=== PATIENT | male | born 1965 | race Caucasian/White ===

== ENCOUNTER 2020-08-12 10:28 | Outpatient (CLI) | payer OTHER, SELFPAY ==
--- NOTE | ~2020-08-12 | US_ITS ---
EXAMINATION: US abdomen complete EXAM DATE: 08/12/2020 11:56 INDICATION: R74.8 - Abnormal levels of other serum enzymes elevated liver function tests. TECHNIQUE: Multiple grayscale and Doppler images of the complete abdomen were obtained (by a technolo gist who performed the scan) and subsequently reviewed. There is no prior study for comparison. FINDINGS: The abdominal aorta is normal in caliber. Visualized portion IVC is patent. The pancreatic head a nd body are normal in appearance. The pancreatic tail is not visualized. There is echogenic liver parenchyma, hepatic steatosis. There are no focal liver lesions identified. There is no evidence of intrahepatic biliary duct dilation. Portal venous flow was seen in the he patopedal, normal direction and has normal Doppler waveform. Common bile duct measures 3-4 mm, which is normal. The gallbladder wall is normal in thickness, with expected amount of distention. No sonographic evidence of pericholecystic fluid. There is no cholel ithiases. Technologist noted tenderness over the otherwise sonographically unremarkable gallbladder. Right kidney: There is normal contour and echogenicity. It measures 13.6 x 5.4 x 5.6 centimeters. T here is a 1 cm cyst. There is no hydronephrosis. Left kidney: There is normal contour and echogenicity. It measures 12.1 x 7.1 x 5.7 centimeters. T here are no focal renal lesions identified. There is no hydronephrosis. The spleen measures 12.5 centimeters and is morphologically normal. IMPRESSION: Hepatic steatosis. Reviewed, dictated and finalized at location A. STER COOK IMPRESSION: Hepatic steatosis.
[2020-08-12 11:14] LABS: Alanine Aminotransferase 62 U/L (4-50); Alkaline Phosphatase 94 U/L (38-126); Aspartate Amino Transferase 74 U/L (17-59); Bilirubin,Total 0.7 mg/dL (0.2-1.3)
[2020-08-12 11:54] LABS: Hepatitis B Surface Antigen Negative (Negative)
[2020-08-12 12:00] LABS: HAV RESULT Negative (Negative); Hepatitis B Core IgM Result Negative (Negative)
[2020-08-12 12:11] LABS: Hepatitis C Virus Antibody Negative (Negative)
[2020-08-16 00:08] LABS: GGT 101 U/L (3-95)
== END 2020-08-12 10:29 | disposition home or self-care (01) ==
LOC: ANHIMG 10:30
PROVIDERS: PCP Family Medicine; Visit Provider Nurse Practitioner Family
DX: R74.8 Abnormal levels of other serum enzymes (principal); K76.0 Fatty (change of) liver, not elsewhere classified
CPT/HCPCS: 36415; 76700; 80074; 80076; 82977

== ENCOUNTER 2024-06-12 14:26 | Outpatient (CLI) | payer OTHER, SELFPAY ==
--- NOTE | ~2024-06-12 | XR_ITS ---
CHEST RADIOGRAPH, PA AND LATERAL CLINICAL HISTORY: HX COPD, SMOKER, SOB, WHEEZING, . COMPARISON: None available TECHNIQUE: PA and lateral views of the chest. FINDINGS The cardiomediastinal silhouette is unremarkable. Calcified granuloma within the right lower lobe. Biapical scarring. Additional calcified granulomas within the right hilum. The remainder of the lungs are radiographically clear. Fixation hardware with cervical spine. IMPRESSION: Findings suggesting prior granulomatous disease, without focal infiltrate or effusion. Reviewed, dictated and finalized at location A. TE SENSING TECHNICIAN IMPRESSION: Findings suggesting prior granulomatous disease, without focal infiltrate or ef fusion.
--- NOTE | ~2024-06-12 | CT_ITS ---
CT Scan of the Chest without Contrast: Clinical Indication: Lung cancer screening, nicotine dependence Technique: Contiguous sections were acquired throughout the chest without intravenous contrast. Dose reduction technique was used on this scan by utilizing automated exposure control and iterative recon struction technique. The dose-length product (DLP) was 139.67 mGy-cm. Findings: There is no evidence of any significant mediastinal, hilar or axillary lymphadenopathy. The mediastin al soft tissues appear normal. There is no evidence of pleural or pericardial effusion. 7 mm nodule present superior segment right lower lobe (axial image 51). Calcified granulomas present in the right lower lobe (axial image 69 for example). There is additional 3 mm right lower lobe pulmo nary nodule (axial image 70). Additional calcified right basilar granuloma present. There is mild upp er lobe emphysema bilaterally. Images through the upper abdomen reveal no abnormalities. Impression: Lung RADS 3: Probably benign. 6 month follow-up screening CT advised. Reviewed, dictated and finalized at [facility]. RANCE VERIFICATION REP Impression: Lung RADS 3: Probably benign. 6 month follow-up screening CT advised.
== END 2024-06-12 14:27 | disposition home or self-care (01) ==
PROVIDERS: PCP Family Medicine; Visit Provider Nurse Practitioner Family
DX: Z12.2 Encounter for screening for malignant neoplasm of respiratory organs (principal); Z87.891 Personal history of nicotine dependence; J44.9 Chronic obstructive pulmonary disease, unspecified; R06.2 Wheezing
CPT/HCPCS: 71046; 71271

== ENCOUNTER 2024-12-15 10:14 | Outpatient (CLI) | payer OTHER, SELFPAY ==
--- NOTE | ~2024-12-15 | CT_ITS ---
Clinical Indication: Abnormal finding of lung field, weight loss CT Scan of the Chest with Contrast: Technique: Contiguous sections were acquired throughout the chest after intravenous administration of 75 cc of Omnipaque 350. Dose reduction technique was used on this scan by utilizing automated exposu re control and iterative reconstruction technique. The dose-length product (DLP) was 222.22 mGy-cm. COMPARISON: 06/12/2024 Findings: There is no evidence of any significant mediastinal, hilar or axillary lymphadenopathy. There is no f illing defect in the pulmonary arterial tree to suggest pulmonary embolus. There is no evidence of ao rtic dissection or aneurysm. There is no evidence of pleural or pericardial effusion. Stable 6 mm nodule adjacent to the fissure in the superior segment right lower lobe. Mild emphysema p resent. Stable additional 3 mm right lower lobe nodule. Calcified granulomas are present. Images through the upper abdomen reveal small amount of perihepatic ascites. Impression: Stable pulmonary nodules, as above. Mild emphysema. Small amount of perihepatic/upper abdominal ascites. Reviewed, dictated and finalized at location . Impression: Stable pulmonary nodules, as above. Mild emphysema. Small amount of perihepatic/upper abdominal ascites.
--- OUTSIDE RECORDS SUMMARY | 2024-12-15 09:17 | XMS_ITS | Clinical Summary ---
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 Active Budeson-Glycopy rrol-Formoterol (Breztri Aerosphere) 160-9-4.8 MCG/ACT Aerosol take 1 Puff by inhalation 2 times daily. Active acetaminophen (TYLENOL) 325 MG Tablet Take 1 Tablet by mouth every 6 hours as needed for Fever (for temperature greater than 100.4 F.). Do not exceed 4000 mg of acetaminophen in 24 hour from all sources. 5 Active oxyCODONE (ROXICODONE) 5 MG TabletIndicatio ns:Colovesical fistula Take 1 Tablet by mouth every 4 hours as needed for Severe pain. 10 Tablet 5 Active Additional Information Patient not taking.Reported on 11/25/2024 Blood Glucose Monitoring Suppl (ONE TOUCH ULTRA 2) w/Device Kit Use as directed 5 Active OneTouch Ultra Strip Use as directed 5 Active HYDROcodone-edna taminophen (NORCO) 10-325 MG Tablet take 1 tablet by mouth every 8 hours as needed for pain 5 Active hydrOXYzine (ATARAX) 10 MG Tablet take 1 tablet by mouth three times daily as needed for itching 5 Active ondansetron (ZOFRAN-ODT) 4 MG TABLET DISPERSIBLE Take 1 Tablet by mouth every 8 hours as needed for Nausea - 1st line. 10 Tablet 5 Active Active Problems Problem Noted Date Diagnosed Date Alcoholic cirrhosis of liver without ascites 02/2025 Colovesical fistula 10/09/2024 Encounters Date Type Department Care Team Description 11/28/2024 Telephone [facility] [address] [place] [address] Yinka Vazquez MD 11/27/2024 11:45 AM CDT Office Visit [facility] [address] [place] [address] Yinka Vazquez MD Flank pain (Primary Dx); Scrotal mass; Benign prostatic hyperplasia without lower urinary tract symptoms Discharge Disposition: Discharged to home or Selfcare 11/25/2024 2:00 PM CDT Office Visit [facility] - General Surgery - [place] [address] [address] Ulysses Sahni MD S/P laparoscopic colectomy (Primary Dx) Discharge Disposition: Discharged to home or Selfcare 11/25/2024 Travel 10/09/2024 12:10 PM CDT [facility]illary [facility] [address] [place] [address] Ulysses Sahni MD Zaid, Uwais Bin, MD 10/09/2024 8:46 AM CDT Anest[facility] [place] [address] Piter Jauregui APRN, DIMITRI 10/09/2024 8:40 AM CDT - 10/09/2024 12:20 PM CDT [facility] [place] [address] Yinka Vazquez MD CYSTOSCOPY, URETHRAL DILATION 10/09/2024 5:08 AM CDT - 10/19/2024 12:31 PM CDT Hospital Encounter [facility] [address] [place] [address] [place] [address] Yinka Vazquez MD Kumar, Raman, MD Colovesical fistula Discharge Disposition: Discharged to home or Selfcare 10/09/2024 Travel from Last 3 Months Immunizations Immunization Administration Dates Next Due Covid-19 Vaccine, Vector-nr, Rs-ad26, Pf, 0.5 Ml ([employer]) 11/05/2020 TDAP Vaccine 02/08/2021 Family History Medical History Relation Name Comments No Known Problems Daughter Heart Disease Father Thyroid Disease Father No Known Problems Maternal Grandfather Cancer Maternal Grandmother Diabetes Mother Heart Attack Mother Heart Disease Mother Emphysema Paternal Grandfather No Known Problems Paternal Grandmother Cancer Son testicular Relation Name Status Comments Daughter Alive Father Alive Maternal Grandfather Maternal Grandmother Mother Paternal Grandfather Paternal Grandmother Son Alive Social History Tobacco Use Types Packs/Day Years Used Date Smoking Tobacco: Every Day Cigarettes 1 47.5 Started: 1977 Smokeless Tobacco: Never Tobacco Cessation:Ready to Q uit: Not Asked; Counseling Given: Not Answered Alcohol Use Standard Drinks/Week Comments Yes 24 (1 standard drink = 0.6 oz pu re alcohol) Drinks daily after work [facility] Utilities Answer Date Recorded In the past 12 months has [facility] [employer], oil, or water [employer] threatened to shut off services in your home? Patient declined 10/09/2024 Social Connection and Isolation Panel Answer Date Recorded In a typical week, how many times do you talk on the phone with family, friends, or neighbors? Patient declined 10/09/2024 How often do you get togethe r with friends or relatives? Patient declined 10/09/2024 How often do you attend baptism or confucianism serv ices? Patient declined 10/09/2024 Do you belong to any clubs o r organizations such as baptism groups, unions, fraternal or athletic groups, or school groups? Patient declined 10/09/2024 How often do you attend meet ings of the clubs or organizations you belong to? Patient declined 10/09/2024 Are you , , di vorced, , never , or living with a partner? Patient declined 10/09/2024 AUDIT-C Answer Date Recorded Q1: How often do you have a drink containing alc ohol? Patient declined 10/09/2024 Q2: How many drinks containi ng alcohol do you have on a typical day when you are drinking? Patient declined 10/09/2024 Q3: How often do you have si x or more drinks on one occasion? Patient declined 10/09/2024 Overall Financial Resource Strain (CARDIA) Answe r Date Recorded How hard is it for you to pa y for the very basics like food, housing, medical care, and heating? Patient declined 10/09/2024 [facility] - Occupational Stress Questionnaire Answer Date Recorded Do you feel stress - tense, restless, nervous, or anxious, or unable to sleep at night because your mind is troubled all the time - these days? Patient declined 10/09/2024 Exercise Vital Sign Answer Date Recorde d On average, how many days pe r week do you engage in moderate to strenuous exercise (like a brisk walk)? Patient declined On average, how many minutes do you engage in exercise at this level? Patient declined 10/09/2024 Hunger Vital Sign Answer Date Recorded Within the past 12 months, y ou worried that your food would run out before you got the money to buy more. Patient declined Within the past 12 months, t he food you bought just didn't last and you didn't have money to get more. Patient declined 07/2024 PRAPARE - Transportation Answer Date Re corded In the past 12 months, has l ack of transportation kept you from medical appointments or from getting medications? Patient declined 10/09/2024 In the past 12 months, has l ack of transportation kept you from meetings, work, or from getting things needed for daily living? Patient declined 10/09/2024 Housing Stability Vital Sign Answer Poncho e Recorded In the last 12 months, was t here a time when you were not able to pay the mortgage or rent on time? Patient declined 10/10/19 25 In the past 12 months, how m any times have you moved where you were living? 1 10/09/2024 At any time in the past 12 m [facility], were you homeless or living in a [place] facility (including now)? Patient declined 10/09/2024 Sexually Active Control Partners Comments Not Currently Female Sex and Gender Information Value Date Recorded Sex Assigned at Not on file Legal Sex Male 1:50 PM CDT Gender Identity Not on file Sexual Orientation Not on file Last Filed Vital Signs Vital Sign Reading Time Taken Comments Blood Pressure 107/69 11/27/2024 11:49 AM CDT Pulse 108 11/27/2024 11:49 AM CDT Temperature 36.3 C (97.3 F) 11/25/2024 1:56 PM CDT Respiratory Rate 16 11/27/2024 11:49 AM CDT Oxygen Saturation 98% 11/27/2024 11:49 AM CDT Inhaled Oxygen Concentration - - Weight 77.6 kg (171 lb) 11/27/2024 11:49 AM CDT Height 190.5 cm (6' 3) 11/27/2024 11:49 AM CDT Body Mass Index 21.37 11/27/2024 11:49 AM CDT Plan of Treatment Health Maintenance Due Date Last Done Comments Hepatitis C Virus (HCV) Screening 1966 Hepatitis B Immunization (1 of 3 - 19+ 3-dose series) 1985 Pneumococcal Immunization (5 0+ years) (1 of 2 - PCV) 1985 Cologuard 2011 Immunochemical Fecal Occult Blood 2011 Lung Cancer Screening 02/08/2016 Zoster Immunization (1 of 2) 02/08/2016 PSA Discussion 2021 SARS-COV-2 Immunization (2 - season) 2024 11/05/2020 Influenza Immunization (Seas on Ended) 2025 Td Immunization Every 10 Yea rs (Adults With 1 Tdap) 02/08/2031 02/08/2021 Colonoscopy 04/26/2031 04/26/2021 Colorectal Cancer Screening 04/26/2031 Respiratory Syncytial Virus (RSV) Immunization (Adult) (1 - 1-dose 75+ series) 2041 TdaP Immunization Discontinued 02/08/2021 Human Papillomavirus (HPV) Immunization Aged Out No longer eligible b ased on patient's age to complete this topic Meningococcal Immunization (ACWY) Aged Out No longer eligible based on patient's age to complete this topic Rotavirus Immunization Aged Out No lo nger eligible based on patient's age to complete this topic Procedures Procedure Name Priority Date/Time Associated Diagnosis Comments POCT GLUCOSE Routine 10/19/2024 7:19 AM CDT CBC WITH AUTO DIFFERENTIAL Routine 10/19/2024 5:09 AM CDT CMP (COMPREHENSIVE METABOLIC PANEL) Routine 10/19/2024 5:09 AM CDT COMPLETE BLOOD COUNT (CBC) WITH DIFF Routine 10/19/2024 5:09 AM CDT POCT GLUCOSE Routine 10/18/2024 9:58 PM CDT POCT GLUCOSE Routine 10/18/2024 5:09 PM CDT POCT GLUCOSE Routine 10/18/2024 12:03 PM CDT POCT GLUCOSE Routine 10/18/2024 6:09 AM CDT CBC WITH AUTO DIFFERENTIAL Routine 10/18/2024 5:27 AM CDT CMP (COMPREHENSIVE METABOLIC PANEL) Routine 10/18/2024 5:27 AM CDT COMPLETE BLOOD COUNT (CBC) WITH DIFF Routine 10/18/2024 5:27 AM CDT POCT GLUCOSE Routine 10/18/2024 12:08 AM CDT POCT GLUCOSE Routine 10/17/2024 6:25 PM CDT POCT GLUCOSE Routine 10/17/2024 11:35 AM CDT CBC WITH AUTO DIFFERENTIAL Routine 10/17/2024 5:53 AM CDT COMPLETE BLOOD COUNT (CBC) WITH DIFF Routine 10/17/2024 5:53 AM CDT CMP (COMPREHENSIVE METABOLIC PANEL) Routine 10/17/2024 5:51 AM CDT POCT GLUCOSE Routine 10/17/2024 5:36 AM CDT POCT GLUCOSE Routine 10/16/2024 11:10 PM CDT POCT GLUCOSE Routine 10/16/2024 6:35 PM CDT POCT GLUCOSE Routine 10/16/2024 11:13 AM CDT PT EVALUATE AND TREAT Routine 10/16/2024 10:35 AM CDT OT EVALUATE AND TREAT Routine 10/16/2024 10:35 AM CDT POCT GLUCOSE Routine 10/16/2024 6:17 AM CDT POCT GLUCOSE Routine 10/15/2024 11:43 PM CDT POCT GLUCOSE Routine 10/15/2024 4:11 PM CDT POCT GLUCOSE Routine 10/15/2024 11:26 AM CDT POCT GLUCOSE Routine 10/15/2024 8:10 AM CDT POCT GLUCOSE Routine 10/15/2024 12:20 AM CDT POCT GLUCOSE Routine 10/14/2024 4:13 PM CDT POCT GLUCOSE Routine 10/14/2024 11:[address] ABDOMEN PELVIS W/ CONTRAST Routine 10/14/2024 9:18 AM CDT POCT GLUCOSE Routine 10/14/2024 7:51 AM CDT XR ABDOMEN KUB FLAT PLATE Routine 10/14/2024 6:18 AM CDT CBC WITH AUTO DIFFERENTIAL Routine 10/14/2024 4:40 AM CDT BASIC METABOLIC PANEL W/ CALCIUM TOTAL Routine 10/14/2024 4:40 AM CDT COMPLETE BLOOD COUNT (CBC) WITH DIFF Routine 10/14/2024 4:40 AM CDT POCT GLUCOSE Routine 10/14/2024 12:18 AM CDT XR ABDOMEN KUB FLAT PLATE Routine 10/13/2024 5:03 PM CDT XR SMALL BOWEL FOLLOW THROUGH Routine 10/13/2024 4:34 PM CDT CBC WITH AUTO DIFFERENTIAL Routine 10/13/2024 4:23 AM CDT COMPLETE BLOOD COUNT (CBC) WITH DIFF Routine 10/13/2024 4:23 AM CDT BASIC METABOLIC PANEL W/ CALCIUM TOTAL Routine 10/13/2024 4:23 AM CDT PULSE OXIMETRY, OVERNIGHT Routine 10/12/2024 3:44 PM CDT CBC WITH AUTO DIFFERENTIAL Routine 10/12/2024 4:58 AM CDT PHOSPHORUS (PO4) Routine 10/12/2024 4:58 AM CDT COMPLETE BLOOD COUNT (CBC) WITH DIFF Routine 10/12/2024 4:58 AM CDT BASIC METABOLIC PANEL W/ CALCIUM TOTAL Routine 10/12/2024 4:58 AM CDT CBC WITH AUTO DIFFERENTIAL Routine 10/11/2024 4:08 AM CDT PHOSPHORUS (PO4) Routine 10/11/2024 4:08 AM CDT COMPLETE BLOOD COUNT (CBC) WITH DIFF Routine 10/11/2024 4:08 AM CDT BASIC METABOLIC PANEL W/ CALCIUM TOTAL Routine 10/11/2024 4:08 AM CDT CBC WITH AUTO DIFFERENTIAL Routine 10/10/2024 5:26 AM CDT PHOSPHORUS (PO4) Routine 10/10/2024 5:26 AM CDT MAGNESIUM (MG) Routine 10/10/2024 5:26 AM CDT COMPLETE BLOOD COUNT (CBC) WITH DIFF Routine 10/10/2024 5:26 AM CDT BASIC METABOLIC PANEL W/ CALCIUM TOTAL Routine 10/10/2024 5:26 AM CDT MDI TREATMENT RT-INITIAL Routine 10/10/2024 12:01 AM CDT MDI TREATMENT RT-INITIAL Routine 10/10/2024 12:01 AM CDT POCT GLUCOSE Routine 10/09/2024 12:19 PM CDT GI LAB IMAGING - FLEX SIGMOIDOSCOPY Routine 10/09/2024 11:23 AM CDT CBC WITH AUTO DIFFERENTIAL STAT 10/09/2024 10:35 AM CDT COMPLETE BLOOD COUNT (CBC) WITH DIFF STAT 10/09/2024 10:35 AM CDT PROTIME (PT) (PROTHROMBIN TIME) Routine 10/09/2024 10:35 AM CDT BASIC METABOLIC PANEL W/ CALCIUM TOTAL STAT 10/09/2024 10:35 AM CDT PATHOLOGY SURGICAL Routine 10/09/2024 9: 54 AM CDT INTUBATION IN OR Routine 10/09/2024 8:56 AM CDT RESECT SM INTEST,ALEXIA ATRESIA,EA ADDL 10/09/2024 8:24 AM CDT [facility] Special Needs Surgery Admit per Dr. Shani, Colovesical Fistula, ERAS protocol, Thomas and Bowel Prep, Type 2 DM, COPD with Breztri inhaler BID, Hx alcohol and tobacco use (reducing use) Dr. Vazquez to first place bilateral ureteral stents and do possible biopsy of bladder. RESECT SM INTEST,ALEXIA ATRESIA,W/TAPER 10/09/2024 8:24 AM CDT [facility] Special Needs Surgery Admit per Dr. Sahni, Colovesical Fistula, ERAS protocol, Thomas and Bowel Prep, Type 2 DM, COPD with Breztri inhaler BID, Hx alcohol and tobacco use (reducing use) Dr. Vazquez to first place bilateral ureteral stents and do possible biopsy of bladder. RESECT SM INTEST,ALEXIA ATRESIA,W/O TAPER 10/09/2024 8:24 AM CDT [facility] Special Needs Surgery Admit per Dr. Sahni, Colovesical Fistula, ERAS protocol, Thomas and Bowel Prep, Type 2 DM, COPD with Breztri inhaler BID, Hx alcohol and tobacco use (reducing use) Dr. Vazquez to first place bilateral ureteral stents and do possible biopsy of bladder. RESECT SMALL INTEST W ENTEROSTOMY 10/09/2024 8:24 AM CDT [facility] Special Needs Surgery Admit per Dr. Sahni Colovesical Fistula, ERAS protocol, Thomas and Bowel Prep, Type 2 DM, COPD with Breztri inhaler BID, Hx alcohol and tobacco use (reducing use) Dr. Vazquez to first place bilateral ureteral stents and do possible biopsy of bladder. RESECT SMALL INTEST,SINGL RESEC/ANAS 10/09/2024 8:24 AM CDT [facility] Special Needs Surgery Admit per Dr. Sahni Colovesical Fistula, ERAS protocol, Thomas and Bowel Prep, Type 2 DM, COPD with Breztri inhaler BID, Hx alcohol and tobacco use (reducing use) Dr. Vazquez to first place bilateral ureteral stents and do possible biopsy of bladder. UROLOGY SURGERY PROCEDURE UNLISTED 10/09/2024 8:24 AM CDT [facility] Special Needs Surgery Admit per Dr. Sahni, Colovesical Fistula, ERAS protocol, Thomas and Bowel Prep, Type 2 DM, COPD with Breztri inhaler BID, Hx alcohol and tobacco use (reducing use) Dr. Vazquez to first place bilateral ureteral stents and do possible biopsy of bladder. INSERT,TEMP INDWELLING BLAD CATH,COMP 10/09/2024 8:24 AM CDT [facility] Special Needs Surgery Admit per Dr. Sahni Colovesical Fistula, ERAS protocol, Thomas and Bowel Prep, Type 2 DM, COPD with Breztri inhaler BID, Hx alcohol and tobacco use (reducing use) Dr. Vazquez to first place bilateral ureteral stents and do possible biopsy of bladder. INSERT,TEMP INDWELLING BLAD CATH,SIMPLE 10/09/2024 8:24 AM CDT [facility] Special Needs Surgery Admit per Dr. Sahni Colovesical Fistula, ERAS protocol, Thomas and Bowel Prep, Type 2 DM, COPD with Breztri inhaler BID, Hx alcohol and tobacco use (reducing use) Dr. Vazquez to first place bilateral ureteral stents and do possible biopsy of bladder. CA SCREEN;FLEXI SIGMOIDSCOPE 10/09/2024 8:24 AM CDT [facility] Special Needs Surgery Admit per Dr. Sahni Colovesical Fistula, ERAS protocol, Thomas and Bowel Prep, Type 2 DM, COPD with Breztri inhaler BID, Hx alcohol and tobacco use (reducing use) Dr. Vazquez to first place bilateral ureteral stents and do possible biopsy of bladder. SIGMOIDOSCOPY FLEX DIAGNOSTIC 10/09/2024 8:24 AM CDT [facility] Special Needs Surgery Admit per Dr. Sahni Colovesical Fistula, ERAS protocol, Thomas and Bowel Prep, Type 2 DM, COPD with Breztri inhaler BID, Hx alcohol and tobacco use (reducing use) Dr. Vazquez to first place bilateral ureteral stents and do possible biopsy of bladder. LAP,SURG,COLECTOMY, PARTIAL, W/ANAST 10/09/2024 8:24 AM CDT [facility] Special Needs Surgery Admit per Dr. Sahni Colovesical Fistula, ERAS protocol, Thomas and Bowel Prep, Type 2 DM, COPD with Breztri inhaler BID, Hx alcohol and tobacco use (reducing use) Dr. Vazquez to first place bilateral ureteral stents and do possible biopsy of bladder. CYSTO/URETERO W/LITHOTRIPSY 10/09/2024 8:24 AM CDT [facility] Special Needs Surgery Admit per Dr. Sahni, Colovesical Fistula, ERAS protocol, Thomas and Bowel Prep, Type 2 DM, COPD with Breztri inhaler BID, Hx alcohol and tobacco use (reducing use) Dr. Vazquez to first place bilateral ureteral stents and do possible biopsy of bladder. CYSTOSCOPY,INSERT URETERAL STENT 10/09/2024 8:24 AM CDT [facility] Special Needs Surgery Admit per Dr. Sahni, Colovesical Fistula, ERAS protocol, Thomas and Bowel Prep, Type 2 DM, COPD with Breztri inhaler BID, Hx alcohol and tobacco use (reducing use) Dr. Vazquez to first place bilateral ureteral stents and do possible biopsy of bladder. CYSTOSCOPY,INSERT URETHRAL STENT 10/09/2024 8:24 AM CDT [facility] Special Needs Surgery Admit per Dr. Sahni, Colovesical Fistula, ERAS protocol, Thomas and Bowel Prep, Type 2 DM, COPD with Breztri inhaler BID, Hx alcohol and tobacco use (reducing use) Dr. Vazquez to first place bilateral ureteral stents and do possible biopsy of bladder. CYSTOURETHROSCOPY,BI OPSIES 10/09/2024 8:24 AM CDT [facility] Special Needs Surgery Admit per Dr. Sahni, Colovesical Fistula, ERAS protocol, Thomas and Bowel Prep, Type 2 DM, COPD with Breztri inhaler BID, Hx alcohol and tobacco use (reducing use) Dr. Vazquez to first place bilateral ureteral stents and do possible biopsy of bladder. NERVE BLOCK Routine 10/09/2024 8:21 AM CDT POCT GLUCOSE Routine 10/09/2024 5:58 AM CDT from Last 3 Months Results * (ABNORMAL) POCT Glucose (10/19/2024 7:19 AM CDT) Only the most recent of24 resultswithin the time period is included. Pathologist JAIDEN WatkinsID E POCT 111(H) 70 - 99 mg/dL 10/19/2024 7:24 AM CDT [facility] Blood 10/19/2024 7:19 AM CDT 10/19/2024 7:24 AM CDT us None Provider POINT OF CARE TESTING Final Resu lt [facility] [address] [place] [address] * (ABNORMAL) CBC with Auto Differential (10/19/2024 5:09 AM CDT) Only the most recent of9 resultswithin the time period is included. WBC 5.15 4.00 - 12.00 10(3)/mcL 10/19/2024 5:23 AM CDT [facility] RBC 3.64(L) 4.40 - 5.80 10(6)/mcL 10/19/2024 5:23 AM CDT [facility] HEMOGLOBIN (HGB) 12.1(L) 13.0 - 16.5 g/dL 10/19/2024 5:23 AM CDT [facility] HEMATOCRIT (HCT) 35.7(L) 38.0 - 50.0 % 10/19/2024 5:23 AM CDT [facility] MCV 98.1(H) 82.0 - 96.0 fL 10/19/2024 5:23 AM CDT [facility] MCH 33.2(H) 26.0 - 32.0 pg 10/19/2024 5:23 AM CDT [facility] MCHC 33.9 31.0 - 36.0 g/dL 10/19/2024 5:23 AM CDT [facility] PLATELET COUNT 122(L) 140 - 440 10(3)/mcL 10/19/2024 5:23 AM CDT [facility] RDW 12.7 11.8 - 15.5 % 10/19/2024 5:23 AM CDT [facility] MPV 10.0 8.0 - 12.6 fL 10/19/2024 5:23 AM CDT [facility] NEUTROPHILS 70.9(H) 40.0 - 68.0 % 10/19/2024 5:23 AM CDT [facility] LYMPHOCYTES 16.9(L) 19.0 - 49.0 % 10/19/2024 5:23 AM CDT [facility] MONOCYTES 9.7 3.0 - 13.0 % 10/19/2024 5:23 AM CDT [facility] EOSINOPHILS 2.1 0.0 - 8.0 % 10/19/2024 5:23 AM CDT [facility] BASOPHILS 0.4 0.0 - 1.0 % 10/19/2024 5:23 AM CDT [facility] ABSOLUTE NEUTROPHILS 3.65 1.40 - 5.30 10(3)/mcL 10/19/2024 5:23 AM CDT [facility] ABSOLUTE LYMPHOCYTES 0.87(L) 0.90 - 3.30 10(3)/[facility] 10/19/2024 5:23 AM CDT [facility] ABSOLUTE MONOCYTES 0.50 0.10 - 0.90 10(3)/[facility] 10/19/2024 5:23 AM CDT [facility] ABSOLUTE EOSINOPHIL 0.11 0.00 - 0.50 10(3)/[facility] 10/19/2024 5:23 AM CDT [facility] ABSOLUTE BASOPHILS 0.02 0.00 - 0.10 10(3)/[facility] 10/19/2024 5:23 AM CDT [facility] NRBC PER 100 WBC 0 10/20/19 5:23 AM CDT [facility] Blood Venipuncture / Unknown 10/19/2024 5:09 AM CDT 10/19/2024 5:18 AM CDT us Ulysses Sahni MD HEMATOLOGY ORDERABLES Final Resu lt [facility] [address] [place] [address] * (ABNORMAL) CMP (Comprehensive Metabolic Panel) (10/19/2024 5:09 AM CDT) Only the most recent of3 resultswithin the time period is included. SODIUM 140 136 - 145 mmol/L 10/19/2024 5:44 AM CDT [facility] POTASSIUM 2.9(L) 3.5 - 5.1 mmol/L 10/19/2024 5:44 AM CDT [facility] CHLORIDE 110(H) 98 - 107 mmol/L 10/19/2024 5:44 AM CDT [facility] CO2, VENOUS 22 22 - 30 mmol/L 10/19/2024 5:44 AM CDT [facility] ANION GAP 10.9 <18.0 mmol/L 10/19/2024 5:44 AM CDT [facility] GLUCOSE 123(H) 70 - 99 mg/dL 10/19/2024 5:44 AM CDT [facility] BUN 8 8 - 26 mg/dL 10/19/2024 5:44 AM CDT [facility] CREATININE, BLOOD 0.47(L) 0.70 - 1.30 mg/dL 10/19/2024 5:44 AM CDT [facility] BUN/CREATININE RATIO 17 12 - 20 ratio 10/19/2024 5:44 AM CDT [facility] TOTAL PROTEIN 5.2(L) 6.0 - 8.0 g/dL 10/19/2024 5:44 AM CDT [facility] ALBUMIN 2.4(L) 3.5 - 5.0 g/dL 10/19/2024 5:44 AM T [facility] A/G RATIO 0.9(L) 1.0 - 2.2 10/19/2024 5:44 AM CDT [facility] CALCIUM 7.8(L) 8.7 - 10.5 mg/dL 10/19/2024 5:44 AM CDT [facility] T BILI 0.6 0.2 - 1.2 mg/dL 10/19/2024 5:44 AM CDT [facility] SGOT (AST) 39 <43 U/L 10/19/2024 5:44 AM CDT [facility] SGPT (ALT) 21 <56 U/L 10/19/2024 5:44 AM CDT [facility] ALKALINE PHOSPHATASE 56 40 - 150 U/L 10/19/2024 5:44 AM CDT [facility] GFR, ESTIMATED >60 >=60 10/19/2024 5:44 AM CDT [facility] Comment: Creatinine Clearance is the preferred criteria for selecting drug dose adjustments in renally impaired patients. The GFR is provided as additional pertinent clinical information. GFR is reported in mL/min/1.73 sq m. Calculation based on the Chronic Kidney Disease Epidemiology Collaboration (CKD- EPI) equation refit without adjustment for race. GFR, EST. >60 >=60 025 5:44 AM CDT [facility] GFR, EST. NONAFRICAN >60 >=60 10/19/2024 5:44 AM CDT [facility] Blood Venipuncture / Unknown 10/19/2024 5:09 AM CDT 10/19/2024 5:19 AM CDT us Ulysses Sahni MD CHEMISTRY ORDERABLES Final Resul t [facility] [address] [place] [address] * CT ABDOMEN PELVIS W/ CONTRAST (10/14/2024 9:18 AM CDT) Anatomical Region Laterality Modality Abdomen N/A Computed Tomogra phy 10/14/2024 10:3 0 AM CDT Impressions 10/14/2024 10:32 AM CDT IMPRESSION: 1. Postoperative changes status post rectosigmoid anastomosis and anastomosis in the region of the terminal ileum. 2. Dilated small bowel approaching 4.5 cm in diameter. No evidence of mechanical obstruction. Suspect postoperative ileus. Narrative 10/14/2024 10:32 AM CDT EXAM DESCRIPTION: CT ABDOMEN PELVIS W/ CONTRAST REASON FOR STUDY: Direct admit 10/09/24 laparoscopic sigmoid colectomy for colovesical fistula and small bowel resection at the ileum. F/u XR small bowel study notes dilated loops of bowel, most likely ileus. H/o DM, COPD TECHNIQUE: CT scan of the abdomen and pelvis performed with intravenous and without oral contrast using helical scanning technique with dynamic intravenous contrast injection. Reconstructed coronal and sagittal MPR images reviewed. All images stored on PACS. Automated exposure control was used as a dose optimization technique for this examination. CONTRAST TYPE/DOSE: 100mL of IOPAMIDOL 76 % IV SOLN injected via Intravenous COMPARISON: Small-bowel follow-through dated 10/13/2024 and subsequent KUBs FINDINGS: LOWER CHEST: There are small bilateral pleural effusions and atelectasis. LIVER: Normal size. No identified cystic or solid masses. GALLBLADDER: Gallbladder is partially decompressed. BILE DUCTS: No intrahepatic or extrahepatic ductal dilatation. SPLEEN: Normal size. No focal lesions. PANCREAS: No identified cystic or solid masses. No significant calcifications. No adjacent inflammation or peripancreatic fluid collections. Pancreatic duct not dilated. ADRENALS: Normal. KIDNEYS/URINARY TRACT: Cortical scarring involving the upper pole the left kidney is identified. Simple right renal cyst is present. There is eccentric bladder wall thickening noted on the left. GI: There is a surgical anastomosis of the rectosigmoid colon. There is a surgical anastomosis in the region of the terminal ileum. Small bowel caliber is dilated approaching 4.5 cm. The anastomosis is patent. On coronal reformations the anastomosis is widely patent. There is contrast traversing the anastomosis extending into the right colon. The appendix is normal. Surgical drain is in place. No drainable fluid collection or abscess is evident. PERITONEUM: No ascites or free air. RETROPERITONEUM: No mass or adenopathy. REPRODUCTIVE: No significant abnormality. VASCULATURE: No abdominal aortic aneurysm. MUSCULOSKELETAL: There is disc space disease at the L5-S1 level. OTHER: NG tube is within the stomach. THIS IS AN ELECTRONICALLY VERIFIED FINAL REPORT 10/14/2024 10:30 AM - Electronically signed by Link Flores M.D. SS: GERMAINE Report ID: [id number] Reading Location: [id number] Procedure Note Link Flores MD - 10/14/2024 EXAM DESCRIPTION: CT ABDOMEN PELVIS W/ CONTRAST REASON FOR STUDY: Direct admit 10/09/24 laparoscopic sigmoid colectomy for colovesical fistula and small bowel resection at the ileum. F/u XR small bowel study notes dilated loops of bowel, most likely ileus. H/o DM, COPD TECHNIQUE: CT scan of the abdomen and pelvis performed with intravenous and without oral contrast using helical scanning technique with dynamic intravenous contrast injection. Reconstructed coronal and sagittal MPR images reviewed. All images stored on PACS. Automated exposure control was used as a dose optimization technique for this examination. CONTRAST TYPE/DOSE: 100mL of IOPAMIDOL 76 % IV SOLN injected via Intravenous COMPARISON: Small-bowel follow-through dated 10/13/2024 and subsequent KUBs FINDINGS: LOWER CHEST: There are small bilateral pleural effusions and atelectasis. LIVER: Normal size. No identified cystic or solid masses. GALLBLADDER: Gallbladder is partially decompressed. BILE DUCTS: No intrahepatic or extrahepatic ductal dilatation. SPLEEN: Normal size. No focal lesions. PANCREAS: No identified cystic or solid masses. No significant calcifications. No adjacent inflammation or peripancreatic fluid collections. Pancreatic duct not dilated. ADRENALS: Normal. KIDNEYS/URINARY TRACT: Cortical scarring involving the upper pole the left kidney is identified. Simple right renal cyst is present. There is eccentric bladder wall thickening noted on the left. GI: There is a surgical anastomosis of the rectosigmoid colon. There is a surgical anastomosis in the region of the terminal ileum. Small bowel caliber is dilated approaching 4.5 cm. The anastomosis is patent. On coronal reformations the anastomosis is widely patent. There is contrast traversing the anastomosis extending into the right colon. The appendix is normal. Surgical drain is in place. No drainable fluid collection or abscess is evident. PERITONEUM: No ascites or free air. RETROPERITONEUM: No mass or adenopathy. REPRODUCTIVE: No significant abnormality. VASCULATURE: No abdominal aortic aneurysm. MUSCULOSKELETAL: There is disc space disease at the L5-S1 level. OTHER: NG tube is within the stomach. THIS IS AN ELECTRONICALLY VERIFIED FINAL REPORT 10/14/2024 10:30 AM - Electronically signed by Link Flores M.D. SS: SS Report ID: [id number] Reading Location: [id number] IMPRESSION: 1. Postoperative changes status post rectosigmoid anastomosis and anastomosis in the region of the terminal ileum. 2. Dilated small bowel approaching 4.5 cm in diameter. No evidence of mechanical obstruction. Suspect postoperative ileus. Ulysses Sahni MD IMG CT ORDERABLES Final Result * XR ABDOMEN KUB FLAT PLATE (10/14/2024 6:18 AM CDT) Only the most recent of2 resultswithin the time period is included. Anatomical Region Laterality Modality Abdomen N/A Digital Radiogra phy 10/14/2024 6:24 AM CDT Impressions 10/14/2024 6:26 AM CDT IMPRESSION: Persistent bowel obstruction. High NG tube. Recommend advancing at least 5 cm. Narrative 10/14/2024 6:26 AM CDT EXAM DESCRIPTION: XR ABDOMEN KUB FLAT PLATE REASON FOR STUDY: Follow up sbft TECHNIQUE: Single radiographic view of the abdomen. COMPARISON: Abdomen film of October 13, 2024. FINDINGS: BOWEL: There is extensive air-filled dilation of the small bowel measuring up to 6.1 cm in diameter, not significantly changed from previous studies. There is mild gaseous distention seen of the right and transverse colon. SOFT TISSUES: No significant calcifications. LINES/TUBES: An enteric tube traverses the midline and ends with its tip in the expected location of the stomach, just beyond the expected location of the lower esophageal sphincter. A drain overlies the right lower quadrant. BONES: No acute osseous abnormality. THIS IS AN ELECTRONICALLY VERIFIED FINAL REPORT 10/14/2024 6:24 AM - Electronically signed by Ronel Pickering M.D. SN: SN Report ID: [id number] Reading Location: [id number] Procedure Note Ronel Pickering MD - 10/14/2024 EXAM DESCRIPTION: XR ABDOMEN KUB FLAT PLATE REASON FOR STUDY: Follow up sbft TECHNIQUE: Single radiographic view of the abdomen. COMPARISON: Abdomen film of October 13, 2024. FINDINGS: BOWEL: There is extensive air-filled dilation of the small bowel measuring up to 6.1 cm in diameter, not significantly changed from previous studies. There is mild gaseous distention seen of the right and transverse colon. SOFT TISSUES: No significant calcifications. LINES/TUBES: An enteric tube traverses the midline and ends with its tip in the expected location of the stomach, just beyond the expected location of the lower esophageal sphincter. A drain overlies the right lower quadrant. BONES: No acute osseous abnormality. THIS IS AN ELECTRONICALLY VERIFIED FINAL REPORT 10/14/2024 6:24 AM - Electronically signed by Ronel Pickering M.D. SN: SN Report ID: [id number] Reading Location: [id number] IMPRESSION: Persistent bowel obstruction. High NG tube. Recommend advancing at least 5 cm. Ulysses Sahni MD IM DIAGNOSTIC ORDERABLES Final Result * (ABNORMAL) Basic Metabolic Panel w/ Calcium Total (10/14/2024 4:40 AM CDT) Only the most recent of6 resultswithin the time period is included. SODIUM 140 136 - 145 mmol/L 10/14/2024 5:53 AM CDT [facility] POTASSIUM 3.8 3.5 - 5.1 mmol/L 10/14/2024 5:53 AM CDT [facility] CHLORIDE 109(H) 98 - 107 mmol/L 10/14/2024 5:53 AM CDT [facility] CO2, VENOUS 19(L) 22 - 30 mmol/L 10/14/2024 5:53 AM CDT [facility] ANION GAP 15.8 <18.0 mmol/L 10/14/2024 5:53 AM CDT [facility] GLUCOSE 107(H) 70 - 99 mg/dL 10/14/2024 5:53 AM CDT [facility] BUN 7(L) 8 - 26 mg/dL 10/14/2024 5:53 AM CDT [facility] CREATININE, BLOOD 0.54(L) 0.70 - 1.30 mg/dL 10/14/2024 5:53 AM CDT [facility] BUN/CREATININE RATIO 13 12 - 20 ratio 10/14/2024 5:53 AM CDT [facility] CALCIUM 8.2(L) 8.7 - 10.5 mg/dL 10/14/2024 5:53 AM CDT [facility] GFR, ESTIMATED >60 >=60 10/14/2024 5:53 AM CDT [facility] Comment: Creatinine Clearance is the preferred criteria for selecting drug dose adjustments in renally impaired patients. The GFR is provided as additional pertinent clinical information. GFR is reported in mL/min/1.73 sq m. Calculation based on the Chronic Kidney Disease Epidemiology Collaboration (CKD- EPI) equation refit without adjustment for race. GFR, EST. >60 >=60 025 5:53 AM CDT [facility] GFR, EST. NONAFRICAN >60 >=60 10/14/2024 5:53 AM CDT [facility] Blood Venipuncture / Unknown 10/14/2024 4:40 AM CDT 10/14/2024 5:24 AM CDT us Janet Mayo KILN FIRER HELPER, STAFFING BRANCH MANAGER CHEMISTRY ORDERABLES Anna l Result [facility] [address] [place] [address] * XR SMALL BOWEL FOLLOW THROUGH (10/13/2024 4:34 PM CDT) Anatomical Region Laterality Modality GI, Abdomen N/A Digital Radiogra phy 10/17/2024 11:3 3 PM CDT Impressions 10/17/2024 11:35 PM CDT IMPRESSION: No definite contrast is seen in the colon at [address] of the following day is noted to demonstrate passage of contrast into the cecum. Narrative 10/17/2024 11:35 PM CDT EXAM DESCRIPTION: XR SMALL BOWEL FOLLOW THROUGH REASON FOR STUDY: post-op ileus. laparoscopic sigmoid colectomy, open small bowel resection 10/09/24. has had distention since. and no bowel movements. COMPARISON: None PROCEDURE: Initial research computing specialist image of abdomen acquired, followed by administration of 120 cc oral contrast. Serial radiographic images acquired. Fluoroscopic images recorded of the terminal ileum and other indicated areas. Compression spot images obtained where possible. FINDINGS: Solutions Sales Executive view demonstrates diffusely gas distended small bowel loops. Small amount of contrast has passed through the small bowel at 4 hours. No definite contrast is seen in the colon at 7 hours. THIS IS AN ELECTRONICALLY VERIFIED FINAL REPORT 10/17/2024 11:33 PM - Electronically signed by Joni Mendez M.D. AR: [email or web address] Report ID: [id number] Reading Location: [id number] Procedure Note Joni Mendez MD - 10/17/2024 EXAM DESCRIPTION: XR SMALL BOWEL FOLLOW THROUGH REASON FOR STUDY: post-op ileus. laparoscopic sigmoid colectomy, open small bowel resection 10/09/24. has had distention since. and no bowel movements. COMPARISON: None PROCEDURE: Initial research computing specialist image of abdomen acquired, followed by administration of 120 cc oral contrast. Serial radiographic images acquired. Fluoroscopic images recorded of the terminal ileum and other indicated areas. Compression spot images obtained where possible. FINDINGS: Solutions Sales Executive view demonstrates diffusely gas distended small bowel loops. Small amount of contrast has passed through the small bowel at 4 hours. No definite contrast is seen in the colon at 7 hours. THIS IS AN ELECTRONICALLY VERIFIED FINAL REPORT 10/17/2024 11:33 PM - Electronically signed by Joni Mendez M.D. AR: [email or web address] Report ID: [id number] Reading Location: [id number] IMPRESSION: No definite contrast is seen in the colon at [address] of the following day is noted to demonstrate passage of contrast into the cecum. us Ulysses Sahni MD IMG FLUOROSCOPY ORDERABLES Final Result * PHOSPHORUS (PO4) AM (10/12/2024 4:58 AM CDT) Only the most recent of3 resultswithin the time period is included. PHOSPHORUS 3.1 2.5 - 4.5 mg/dL 10/12/2024 5:49 AM CDT [facility] Blood Venipuncture / Unknown 10/12/2024 4:58 AM CDT 10/12/2024 5:23 AM CDT us Ulysses Sahni MD CHEMISTRY ORDERABLES Final Resul t Performing Organization Address City/[facility] Co de Phone Number [facility] [address] [place] [address] * Magnesium (Mg) (10/10/2024 5:26 AM CDT) MAGNESIUM 1.8 1.6 - 2.6 mg/dL 10/10/2024 6:21 AM CDT [facility] Blood Venipuncture / Unknown 10/10/2024 5:26 AM CDT 10/10/2024 5:44 AM CDT Ulysses Sahni MD CHEMISTRY ORDERABLES Final Resul t Performing Organization Address City/[facility]/ZIP Co de Phone Number [facility] [address] [place] [address] * GI LAB IMAGING - FLEX SIGMOIDOSCOPY (10/09/2024 11:23 AM CDT) us Ulysses Sahni MD IMG DIAGNOSTIC ORDERABLES Final Result * (ABNORMAL) Protime (PT) (Prothrombin Time) (10/09/2024 10:35 AM CDT) PROTIME-PATIENT 17.0(H) 11.6 - 14.8 sec 10/09/2024 11:09 AM CDT [facility] INR 1.4(H) 0.9 - 1.2 10/09/2024 11:09 AM CDT [facility] Comment: Therapeutic Ranges INR = 2.0-3.0: Venous thromb, atrial fib, pul embolism, tissue heart valve, ami. INR = 2.5-3.5: Mechanical heart valve Critical value for INR is >/= 4.5 Blood Venipuncture / Unknown 10/09/2024 10:35 AM CDT 10/09/2024 10:48 AM CDT us Piter Jauregui APRN, CRNA HEMATOLOGY ORDERAB LES Final Result [facility] [address] [place] [address] * Pathology Surgical (10/09/2024 9:54 AM CDT) Case Report Surgical Pathology Report Case: [id number] Authorizing Provider: Yinka Vazquez MD Collected: 10/09/2024 09:54 AM Ordering Location: [facility] Received: 10/09/2024 11:[address] [facility] Main OR Pathologist: Lenny Porter MD PhD Specimens: A) - Fistula, COLORECTAL FISTULA B) - Colon, SIGMOID COLON OPEN END PROXIMAL STAPLED END DISTAL C) - Bowel - Small, TERMINAL ILLIUM D) - Small Bowel Biopsy, ANASTOMOTIC RINGS 10/13/2024 11:10 AM CDT [facility] FINAL DIAGNOSIS A. Colorectal fistula, excisional biopsy: - Consistent with diverticulitis B. Sigmoid colon, sigmoidectomy: - Few small tubular adenoma - Multiple diverticuloses C. Terminal ileum, excision: - Small intestinal mucosa, negative for diagnostic abnormalities D. Anastomotic rings, excision: - Colonic mucosa, negative for diagnostic abnormalities 10/13/2024 11:10 AM CDT [facility] at 1110 CDT Comment In specimen A, the atypical squamoid cell from frozen diagnosis are likely aggregation of histiocytes diverticulitis and fistula formation (they are not present on permanent sections). In specimen B, the 1.5 cm polyp is just benign polypoid mucosa. The two inked rough areas are likely due to diverticulitis. 10/13/2024 11:10 AM CDT [facility] Preliminary Diagnosis Frozen diagnoses: A (10:00 am - 10:16 am). Atypical squamoid epithelial cells, defer for permanent (communicated to Dr. Sahni) B (10:50 am - 11:08 am). Benign (communicated to Dr. Sahni) 10/13/2024 11:10 AM CDT [facility] Pre-Operative Diagnosis COLORESICAL FISTULA 10/13/2024 11:10 AM CDT [facility] Gross Description A. COLORECTAL FISTULA Received fresh and labeled with the patient identification and colorectal fistula is an aggregation of red-daly tissue (0.7 x 0.5 x 0.5 cm). It is entirely submitted for frozen section. B. SIGMOID COLON OPEN END PROXIMAL STAPLED END DISTAL Received fresh and labled with the patient identification and sigmoid colon open end proximal stapled end distal is a segment of colon specimen measuring 18 x 3 cm. The attached mesenteric fat measures 18 x 2 x 1 cm. There is no perforation or mass lesion identified on the surface except two rough areas (4 cm and 2.5 cm) and they are 4 cm and 4.5 cm away from the proximal margin. They are inked black. The specimen is opened longitudinally and revealed several diverticuloses and three polyps (1.5 cm, 0.5 cm, and 0.5 cm). The rough areas is submitted for frozen section. The rest of the specimen.... The mass is [] cm from the proximal margin and [] cm from the distal margin. The corresponding mesentary surgical margin area is inked. The opened specimen is fixed in formalin and the mass is serially sectioned. On cut surfaced, the mass measures [] cm and invades []. The radial surgical margin is [] cm away from tumor. The mesentary fatty tissue is dissected out and [] lymph nodes are identified. The specimen is representatively submitted: 1= C. TERMINAL ILLIUM Receive in fixative and labeled with the patient identification and terminal ileum is a segment of intestine, measuring 3 x 2.5. It is serially sectioned and there is no gross abnormalities. It is representatively submitted in one cassette. D. ANASTOMOTIC RINGS Receive in fixative and labeled with anastomotic rings are two donuts, measuring 0.7 x 1 cm each. They are serially sectioned and there is no gross abnormalities. They are representatively submitted in one cassette. 10/13/2024 11:10 AM CDT [facility] Tissue FISTULA / Unknown 10/09/2024 9:54 AM CDT 10/09/2024 11:30 AM CDT Tissue specimen (specimen) COLON STRUCTURE / Unknown 10/09/2024 10:38 AM CDT 10/09/2024 11:30 AM CDT Tissue specimen (specimen) (Bowel - Small) 10/09/2024 10:50 AM CDT 10/09/2024 11:30 AM CDT Tissue specimen (specimen) STRUCTURE OF SMALL INTESTINE / Unknown 10/09/2024 11:31 AM CDT 10/09/2024 12:37 PM CDT Yinka Jones MD PATHOLOGY/CYTOLOGY ORDERABLES Final Result [facility] [address] [facility] [place] [address] * Intubation in OR (10/09/2024 8:56 AM CDT) Narrative Piter Jauregui APRN, CRNA - 10/09/2024 8:56 AM CDT Piter Jauregui APRN, CRNA 10/09/2024 8:56 AM Intubation in OR Staffing Performed: resident/RADIO BOARD OPERATOR Resident/RADIO BOARD OPERATOR: Piter Jauregui APRN, CRNA Performed by: Piter Jauregui APRN, CRNA Authorized by: Piter Jauregui APRN, CRNA Overall Difficulty: Easy Procedure Details Patient Position: Sniffing Ease of mask ventilation: easy Intubation Site: oral Tube Type: Standard Cuffed: yes Intubation Method: Direct laryngoscopy Cricoid Pressure: No Rapid Sequence: No Blade Used: Sandra Blade size: #2 Stylet Used: Yes Laryngeal View: Grade I Tube Size: 7.5 mmConfirmation: breath sounds and +EtCO2 Depth: 21 cm Atraumatic: Atraumatic intubation us Piter Jauregui APRN, CRNA ANESTHESIA ORDERAB LES Final Result * Nerve Block (10/09/2024 8:21 AM CDT) Narrative Piter Jauregui APRN, CRNA - 10/09/2024 8:21 AM CDT Piter Jauregui APRN, CRNA 10/09/2024 8:22 AM Nerve Block Staffing Performed: resident/RADIO BOARD OPERATOR Resident/RADIO BOARD OPERATOR: Piter Jauregui APRN, CRNA Performed by: Piter Jauregui APRN, CRNA Authorized by: Piter Jauregui APRN, CRNA Patient Location: Pre-op, Prep: Sterile technique, Chloraprep, surgical mask, surgical hat, sterile gloves and surgical mask Anesthesia laterality: bilateral., Block Perfomed: Other, see comments Reason for block: at surgeon's request and post-op pain management Neuraxial/Peripheral Nerve Block requested for post-operative analgesia by: Ulysses Sahni MD Post-Operative pain expected to be inadequately managed by oral or IV medications. , Regional anesthetic expected to facilitate rehabilitation and/or timely discharge from facility., [place] Injection Technique: Single-shot Needle type: Other Needle length: 4 in , Preanesthetic Checklist Completed: site marked, surgical consent, timeout performed, risks and benefits discussed, at surgeon's request and post-op pain management, Procedures Procedures: ultrasound guided Number of attempts: 1 , Narrative Start time: 10/09/2024 7:55 AM End time: 10/09/2024 8:17 AMno ultrasound evidence of intravascular and/or intraneural injection post-procedure vital signs reviewed and stable Injection Pressure normal. Yes Performed by: resident/RADIO BOARD OPERATOR , Additional Notes Quadratus Lumborum bilateral us Piter Jauregui APRN, CRNA ANESTHESIA ORDERAB LES Final Result from Last 3 Months Insurance MEDICAID [employer] Advance Directives * Full Code (Latest Code Status on File) Date Activated Date Inactivated Comments 10/10/2024 9:22 AM CPR-Full Treatm ent: FULL ARREST: Attempt Resuscitation/CPR wit intubation and mechanical ventilation. PRE-ARREST: Use entire range of life support measures to stabilize the patient. Care Teams Valving Machine Operator Relationship Specialty Start Date End Date Citlaly Ambrocio APRN, STAFFING BRANCH MANAGER [address] [place] [address] PCP - General Primary Care 04/29/24 [facility] [address] [place] [address] Consulting Physician Urology 04/29/24 Ulysses Sahni MD #2 [facility] [address] [place] [address] Consulting Physician Colon and Rectal Surgery 05/06/24
[2024-12-15 10:15] LABS: Hematocrit 34.9 % (42.0-52.0); Hemoglobin 11.2 g/dL (14.0-18.0); Immature Granulocyte Percent A 0.4 % (0-0.5); Lymphocytes Absolute Auto 2.01 K/mm3 (0.9-3.2); Mean Corpuscular HGB Conc 32.1 g/dl (32-36); Mean Corpuscular Hemoglobin 29.4 pg (26-34); Mean Corpuscular Volume 91.6 fl (80-100); Nucleated Red Blood Cells Absolute Auto 0.000 K/mm3 (0.0-0.012); Nucleated Red Blood Cells Perc 0.0 % (0.0-0.2); Platelet Count Result 157 k/mm3 (150-375); Red Blood Count 3.81 M/mm3 (4.6-6.20); White Blood Count 7.5 K/mm3 (4.5-10.0)
--- OUTSIDE RECORDS SUMMARY | 2024-12-15 10:21 | XMS_ITS | Encounter Summary ---
Author Organization [facility] Address [address] [place] [id number] Care Team Providers Care [employer] Vice Principal Name Role Phone Shawn Caruso MD Primary Care Provider [phone] Encounter Details Date Type Department Care Team (Late st Contact Info) Description 04/13/2017 [place] [address] , Generic ConversionMD Social History Tobacco Use Types Packs/Day Years Used Date Smoking Tobacco: Never Assessed Sex and Gender Information Value Date Recorded Sex Assigned at Not on file Legal Sex Male 7:08 PM CDT Gender Identity Not on file Sexual Orientation Not on file documented as of this encounter Plan of Treatment Not on file documented as of this encounter Visit Diagnoses Not on filedocumented in this encounter Care Teams [employer] Vice Principal Relationship Specialty Start Date End Date Shawn Caruso MD [address] [place] [address] PCP - General 09/23/14 documented as of this encounter
--- OUTSIDE RECORDS SUMMARY | 2024-12-15 10:22 | XMS_ITS | Clinical Summary ---
Author Organization [facility] Address [facility] [place] [address] Care Team Providers Care Evening Anchor Name Role Phone Shawn Caruso MD Primary Care Provider Allergies Active Allergy Reactions Criticality Noted Date Comments Amoxicillin Unknown 02/08/2021 Medications famotidine 20 MG tablet Take 40 mg by mouth 2 (two) times daily. Active traMADol (ULTRAM) 50 MG tabletIndication s:Acute Pain < 3 Day Supply Take 1 tablet (50 mg total) by mouth every 6 (six) hours as needed. Indications : Acute Pain < 3 Day Supply 10 tablet 03/04/2024 Active Immunizations Immunization Administration Dates Next Due Lively (JOSE [employer] Lingorami) COVID-19 AD26 VACCINE 0.5 ML IM SUSP 11/05/2020 Tdap (Adacel) 02/08/2021 Social History Tobacco Use Types Packs/Day Years Used Date Smoking Tobacco: Every Day Cigarettes Smokeless Tobacco: Never Alcohol Use Standard Drinks/Week Comments Yes 3.3 (1 standard drin k = 0.6 oz pure alcohol) 2x week, 1 bottle of bourbon a week Sex and Gender Information Value Date Recorded Sex Assigned at Not on file Legal Sex Male 7:08 PM CDT Gender Identity Not on file Sexual Orientation Not on file Last Filed Vital Signs Vital Sign Reading Time Taken Comments Blood Pressure 150/87 03/04/2024 7:51 PM CDT Pulse 74 03/04/2024 7:51 PM CDT Temperature 36.8 C (98.3 F) 03/04/2024 3:58 PM CDT Respiratory Rate 18 03/04/2024 7:51 PM CDT Oxygen Saturation 97% 03/04/2024 7:51 PM CDT Inhaled Oxygen Concentration - - Weight 99.8 kg (220 lb) 03/04/2024 3:58 PM CDT Height 190.5 cm (6' 3) 03/04/2024 3:58 PM CDT Body Mass Index 27.5 03/04/2024 3:58 PM CDT Plan of Treatment Health Maintenance Due Date Last Done Comments Annual Physical 1969 Hepatitis C 02/08/1984 Hepatitis B Vaccines (1 of 3 - 19+ 3-dose series) 1985 Pneumococcal Vaccine: 50+ Years (1 of 2 - PCV) 1985 Zoster Vaccines (1 of 2) 02/08/2016 COVID-19 Vaccine (2 - 2023-2 5 season) 2024 11/05/2020 DTaP, Tdap and Td Vaccines ( 2 - Td or Tdap) 02/08/2031 02/08/2021 Colorectal Cancer Screening Colonoscopy (10 Years) 04/26/2031 04/26/2021, 04/26/2021 Meningococcal B Vaccine Aged Out No l onger eligible based on patient's age to complete this topic Meningococcal Vaccine Aged Out No cherie yony eligible based on patient's age to complete this topic RSV Immunizations Under 20 Months Aged Out No longer eligible b ased on patient's age to complete this topic Procedures Procedure Name Priority Date/Time Associated Diagnosis Comments COLONOSCOPY Routine 04/26/2021 12:42 PM FARM FIELD MANAGER from Last 3 Months or Most Recently Relevant to Health Maintenance Insurance [employer] Care Teams Evening Anchor Relationship Specialty Start Date End Date Shawn Caruso MD [address] [place] [address] PCP - General 09/23/14
--- OUTSIDE RECORDS SUMMARY | 2024-12-15 10:22 | XMS_ITS | Clinical Summary ---
Author Organization [facility] Address [address] [place] [address] Phone Care Team Providers Care Records And Information Manager Name Role Phone Yinka Vazquez MD Unavailable [phone] Citlaly Ambrocio PROVIDER NETWORK ANALYST, ELECTRICAL ENGINEERING TECHNICIAN Primary Care Provide r Ulysses Sahni MD [...] Type Department Care Team Description 11/28/2024 Telephone [facility] [address] [place] [address] Yinka Vazquez MD 11/27/2024 11:45 AM CDT Office Visit [facility] [address] [place] [address] Yinka Vazquez MD Flank pain (Primary Dx); Scrotal mass; Benign prostatic hyperplasia without lower urinary tract symptoms Discharge Disposition: Discharged to home or Selfcare 11/25/2024 2:00 PM CDT Office Visit [facility] - General Surgery - [place] [address] [address] Ulysses Sahni MD S/P laparoscopic colectomy (Primary Dx) Discharge Disposition: Discharged to home or Selfcare 11/25/2024 Travel 10/09/2024 12:10 PM CDT Ancillary Procedure [facility] Gi Lab Main [address] [place] [address] Ulysses Sahni MD Zaid, Uwais Bin, MD 10/09/2024 8:46 AM CDT Anesthesia Event [facility] Periop [address] [place] [address] Piter Jauregui APRN, DIMITRI 10/09/2024 8:40 AM CDT - 10/09/2024 12:20 PM CDT Surgery [facility] Periop [address] [place] [address] Yinka Vazquez MD CYSTOSCOPY, URETHRAL DILATION 10/09/2024 5:08 AM CDT - 10/19/2024 12:31 PM CDT Hospital Encounter [facility] [address] [place] [address] [place] [address] Yinka Vazquez MD Kumar, Raman, MD Colovesical fistula Discharge Disposition: Discharged to home or Selfcare 10/09/2024 Travel from Last 3 Months Immunizations Immunization Administration Dates Next Due Covid-19 Vaccine, Vector-nr, Rs-ad26, Pf, 0.5 Ml (Sk[employer]/J&GROU.PS) 11/05/2020 TDAP Vaccine 02/08/2021 Family History Medical [...] pu re alcohol) Drinks daily after work [facility] Utilities Answer Date Recorded In the past 12 months has [facility] [employer], [employer], oil, or water [employer] threatened to shut off services in your home? Patient declined 10/09/2024 Social Connection and Isolation Panel Answer Date Recorded In a typical week, how many times do you talk on the phone with family, friends, or neighbors? Patient declined 10/09/2024 How often do you get togethe r with friends or relatives? Patient declined 10/09/2024 How often do you attend episcopalian or latter day serv ices? Patient declined 10/09/2024 Do you belong to any clubs o r organizations such as episcopalian groups, unions, fraternal or athletic groups, or [...] medical care, and heating? Patient declined 10/09/2024 [facility] - Occupational [...] any time in the past 12 m [facility], were you homeless or living in a half-way (including now)? Patient declined 10/09/2024 Sexually Active [...] 99 mg/dL 10/19/2024 7:24 AM CDT [facility] Blood 10/19/2024 7:19 AM CDT 10/19/2024 7:24 AM CDT us None Provider POINT OF CARE TESTING Final Resu lt [facility] [address] [place] [address] * (ABNORMAL) CBC with Auto Differential (10/19/2024 5:09 AM CDT) Only the most recent of9 resultswithin the time period is included. WBC 5.15 4.00 - 12.00 10(3)/mcL 10/19/2024 5:23 AM CDT [facility] RBC 3.64(L) 4.40 - 5.80 10(6)/mcL 10/19/2024 5:23 AM CDT [facility] HEMOGLOBIN (HGB) 12.1(L) 13.0 - 16.5 g/dL 10/19/2024 5:23 AM CDT [facility] HEMATOCRIT (HCT) 35.7(L) 38.0 - 50.0 % 10/19/2024 5:23 AM CDT [facility] MCV 98.1(H) 82.0 - 96.0 fL 10/19/2024 5:23 AM CDT [facility] MCH 33.2(H) 26.0 - 32.0 pg 10/19/2024 5:23 AM CDT [facility] MCHC 33.9 31.0 - 36.0 g/dL 10/19/2024 5:23 AM CDT [facility] PLATELET COUNT 122(L) 140 - 440 10(3)/mcL 10/19/2024 5:23 AM CDT [facility] RDW 12.7 11.8 - 15.5 % 10/19/2024 5:23 AM CDT [facility] MPV 10.0 8.0 - 12.6 fL 10/19/2024 5:23 AM CDT [facility] NEUTROPHILS 70.9(H) 40.0 - 68.0 % 10/19/2024 5:23 AM CDT [facility] LYMPHOCYTES 16.9(L) 19.0 - 49.0 % 10/19/2024 5:23 AM CDT [facility] MONOCYTES 9.7 3.0 - 13.0 % 10/19/2024 5:23 AM CDT [facility] EOSINOPHILS 2.1 0.0 - 8.0 % 10/19/2024 5:23 AM CDT [facility] BASOPHILS 0.4 0.0 - 1.0 % 10/19/2024 5:23 AM CDT [facility] ABSOLUTE NEUTROPHILS 3.65 1.40 - 5.30 10(3)/mcL 10/19/2024 5:23 AM CDT [facility] ABSOLUTE LYMPHOCYTES 0.87(L) 0.90 - 3.30 10(3)/[facility] 10/19/2024 5:23 AM CDT [facility] ABSOLUTE MONOCYTES 0.50 0.10 - 0.90 10(3)/[facility] 10/19/2024 5:23 AM CDT [facility] ABSOLUTE EOSINOPHIL 0.11 0.00 - 0.50 10(3)/[facility] 10/19/2024 5:23 AM CDT [facility] ABSOLUTE BASOPHILS 0.02 0.00 - 0.10 10(3)/[facility] 10/19/2024 5:23 AM CDT [facility] NRBC PER 100 WBC 0 10/20/19 5:23 AM CDT [facility] Blood Venipuncture / Unknown 10/19/2024 5:09 AM CDT 10/19/2024 5:18 AM CDT us Ulysses Sahni MD HEMATOLOGY ORDERABLES Final Resu lt [facility] [address] [place] [address] * (ABNORMAL) CMP (Comprehensive Metabolic Panel) (10/19/2024 5:09 AM CDT) Only the most recent of3 resultswithin the time period is included. SODIUM 140 136 - 145 mmol/L 10/19/2024 5:44 AM CDT [facility] POTASSIUM 2.9(L) 3.5 - 5.1 mmol/L 10/19/2024 5:44 AM CDT [facility] CHLORIDE 110(H) 98 - 107 mmol/L 10/19/2024 5:44 AM CDT [facility] CO2, VENOUS 22 22 - 30 mmol/L 10/19/2024 5:44 AM CDT [facility] ANION GAP 10.9 <18.0 mmol/L 10/19/2024 5:44 AM CDT [facility] GLUCOSE 123(H) 70 - 99 mg/dL 10/19/2024 5:44 AM CDT [facility] BUN 8 8 - 26 mg/dL 10/19/2024 5:44 AM CDT [facility] CREATININE, BLOOD 0.47(L) 0.70 - 1.30 mg/dL 10/19/2024 5:44 AM CDT [facility] BUN/CREATININE RATIO 17 12 - 20 ratio 10/19/2024 5:44 AM CDT [facility] TOTAL PROTEIN 5.2(L) 6.0 - 8.0 g/dL 10/19/2024 5:44 AM CDT [facility] ALBUMIN 2.4(L) 3.5 - 5.0 g/dL 10/19/2024 5:44 AM T [facility] A/G RATIO 0.9(L) 1.0 - 2.2 10/19/2024 5:44 AM CDT [facility] CALCIUM 7.8(L) 8.7 - 10.5 mg/dL 10/19/2024 5:44 AM CDT [facility] T BILI 0.6 0.2 - 1.2 mg/dL 10/19/2024 5:44 AM CDT [facility] SGOT (AST) 39 <43 U/L 10/19/2024 5:44 AM CDT [facility] SGPT (ALT) 21 <56 U/L 10/19/2024 5:44 AM CDT [facility] ALKALINE PHOSPHATASE 56 40 - 150 U/L 10/19/2024 5:44 AM CDT [facility] GFR, ESTIMATED >60 >=60 10/19/2024 5:44 AM CDT [facility] Comment: Creatinine Clearance is the preferred criteria for selecting drug dose adjustments in renally impaired patients. The GFR is provided as additional pertinent clinical information. GFR is reported in mL/min/1.73 sq m. Calculation based on the Chronic Kidney Disease Epidemiology Collaboration (CKD- EPI) equation refit without adjustment for race. GFR, EST. >60 >=60 025 5:44 AM CDT [facility] GFR, EST. NONAFRICAN >60 >=60 10/19/2024 5:44 AM CDT [facility] Blood Venipuncture / Unknown 10/19/2024 5:09 AM CDT 10/19/2024 5:19 AM CDT us Ulysses Sahni MD CHEMISTRY ORDERABLES Final Resul t [facility] [address] [place] [address] * CT ABDOMEN PELVIS W/ CONTRAST (10/14/2024 [...] Link Flores M.D. SS: GERMAINE Report ID: [id number] Reading Location: [id number] Procedure Note Link Flores MD - 10/14/2024 [...] Link Flores M.D. SS: SS Report ID: [id number] Reading Location: [id number] IMPRESSION: 1. Postoperative changes status post rectosigmoid [...] Ronel Pickering M.D. SN: SN Report ID: [id number] Reading Location: [id number] Procedure Note Ronel Pickering MD - 10/14/2024 [...] Ronel Pickering M.D. SN: SN Report ID: [id number] Reading Location: [id number] IMPRESSION: Persistent bowel obstruction. High NG tube. Recommend advancing at least 5 cm. Ulysses Sahni MD IM DIAGNOSTIC ORDERABLES Final Result * (ABNORMAL) Basic Metabolic Panel w/ Calcium Total (10/14/2024 4:40 AM CDT) Only the most recent of6 resultswithin the time period is included. SODIUM 140 136 - 145 mmol/L 10/14/2024 5:53 AM CDT [facility] POTASSIUM 3.8 3.5 - 5.1 mmol/L 10/14/2024 5:53 AM CDT [facility] CHLORIDE 109(H) 98 - 107 mmol/L 10/14/2024 5:53 AM CDT [facility] CO2, VENOUS 19(L) 22 - 30 mmol/L 10/14/2024 5:53 AM CDT [facility] ANION GAP 15.8 <18.0 mmol/L 10/14/2024 5:53 AM CDT [facility] GLUCOSE 107(H) 70 - 99 mg/dL 10/14/2024 5:53 AM CDT [facility] BUN 7(L) 8 - 26 mg/dL 10/14/2024 5:53 AM CDT [facility] CREATININE, BLOOD 0.54(L) 0.70 - 1.30 mg/dL 10/14/2024 5:53 AM CDT [facility] BUN/CREATININE RATIO 13 12 - 20 ratio 10/14/2024 5:53 AM CDT [facility] CALCIUM 8.2(L) 8.7 - 10.5 mg/dL 10/14/2024 5:53 AM CDT [facility] GFR, ESTIMATED >60 >=60 10/14/2024 5:53 AM CDT [facility] Comment: Creatinine Clearance is the preferred criteria for selecting drug dose adjustments in renally impaired patients. The GFR is provided as additional pertinent clinical information. GFR is reported in mL/min/1.73 sq m. Calculation based on the Chronic Kidney Disease Epidemiology Collaboration (CKD- EPI) equation refit without adjustment for race. GFR, EST. >60 >=60 025 5:53 AM CDT [facility] GFR, EST. NONAFRICAN >60 >=60 10/14/2024 5:53 AM CDT [facility] Blood Venipuncture / Unknown 10/14/2024 4:40 AM CDT 10/14/2024 5:24 AM CDT us Janet Mayo PROVIDER NETWORK ANALYST, ELECTRICAL ENGINEERING TECHNICIAN CHEMISTRY ORDERABLES Anna l Result [facility] [address] [place] [address] * XR SMALL BOWEL FOLLOW THROUGH (10/13/2024 [...] no bowel movements. COMPARISON: None PROCEDURE: Initial solar consultant image of abdomen acquired, followed by administration of 120 cc oral contrast. Serial radiographic images acquired. Fluoroscopic images recorded of the terminal ileum and other indicated areas. Compression spot images obtained where possible. FINDINGS: Overlock Hemmer view demonstrates diffusely gas distended small bowel loops. Small amount of contrast has passed through the small bowel at 4 hours. No definite contrast is seen in the colon at 7 hours. THIS IS AN ELECTRONICALLY VERIFIED FINAL REPORT 10/17/2024 11:33 PM - Electronically signed by Jnoi Mendez M.D. AR: [email or web address] Report ID: [id number] Reading Location: [id number] Procedure Note Joni Mendez MD - 10/17/2024 EXAM DESCRIPTION: XR SMALL BOWEL FOLLOW THROUGH REASON FOR STUDY: post-op ileus. laparoscopic sigmoid colectomy, open small bowel resection 10/09/24. has had distention since. and no bowel movements. COMPARISON: None PROCEDURE: Initial solar consultant image of abdomen acquired, followed by administration of 120 cc oral contrast. Serial radiographic images acquired. Fluoroscopic images recorded of the terminal ileum and other indicated areas. Compression spot images obtained where possible. FINDINGS: Overlock Hemmer view demonstrates diffusely gas distended small bowel loops. Small amount of contrast has passed through the small bowel at 4 hours. No definite contrast is seen in the colon at 7 hours. THIS IS AN ELECTRONICALLY VERIFIED FINAL REPORT 10/17/2024 11:33 PM - Electronically signed by Joni Mendez M.D. AR: [email or web address] Report ID: [id number] Reading Location: [id number] IMPRESSION: No definite contrast is seen in [...] - 4.5 mg/dL 10/12/2024 5:49 AM CDT [facility] Blood Venipuncture / Unknown 10/12/2024 4:58 AM CDT 10/12/2024 5:23 AM CDT us Ulysses Sahni MD CHEMISTRY ORDERABLES Final Resul t Performing Organization Address City/[facility] Co de Phone Number [facility] [address] [place] [address] * Magnesium (Mg) (10/10/2024 5:26 AM CDT) MAGNESIUM 1.8 1.6 - 2.6 mg/dL 10/10/2024 6:21 AM CDT [facility] Blood Venipuncture / Unknown 10/10/2024 5:26 AM CDT 10/10/2024 5:44 AM CDT Ulysses Sahni MD CHEMISTRY ORDERABLES Final Resul t Performing Organization Address City/[facility]/ZIP Co de Phone Number [facility] [address] [place] [address] * GI LAB IMAGING - FLEX SIGMOIDOSCOPY (10/09/2024 11:23 AM CDT) us Ulysses Sahni MD IMG DIAGNOSTIC ORDERABLES Final Result * (ABNORMAL) Protime (PT) (Prothrombin Time) (10/09/2024 10:35 AM CDT) PROTIME-PATIENT 17.0(H) 11.6 - 14.8 sec 10/09/2024 11:09 AM CDT [facility] INR 1.4(H) 0.9 - 1.2 10/09/2024 11:09 AM CDT [facility] Comment: Therapeutic Ranges INR = 2.0-3.0: Venous thromb, atrial fib, pul embolism, tissue heart valve, ami. INR = 2.5-3.5: Mechanical heart valve Critical value for INR is >/= 4.5 Blood Venipuncture / Unknown 10/09/2024 10:35 AM CDT 10/09/2024 10:48 AM CDT us Piter Jauregui APRN, CRNA HEMATOLOGY ORDERAB LES Final Result [facility] [address] [place] [address] * Pathology Surgical (10/09/2024 9:54 AM CDT) Case Report Surgical Pathology Report Case: [id number] Authorizing Provider: Yinka Vazquez MD Collected: 10/09/2024 09:54 AM Ordering Location: [facility] Received: 10/09/2024 11:30 AM [facility] Main OR Pathologist: Lenny Porter MD PhD Specimens: A) - Fistula, COLORECTAL FISTULA B) - Colon, SIGMOID COLON OPEN END PROXIMAL STAPLED END DISTAL C) - Bowel - Small, TERMINAL ILLIUM D) - Small Bowel Biopsy, ANASTOMOTIC RINGS 10/13/2024 11:10 AM CDT [facility] FINAL DIAGNOSIS A. Colorectal fistula, excisional biopsy: - Consistent with diverticulitis B. Sigmoid colon, sigmoidectomy: - Few small tubular adenoma - Multiple diverticuloses C. Terminal ileum, excision: - Small intestinal mucosa, negative for diagnostic abnormalities D. Anastomotic rings, excision: - Colonic mucosa, negative for diagnostic abnormalities 10/13/2024 11:10 AM CDT [facility] at 1110 CDT Comment In specimen A, the atypical squamoid cell from frozen diagnosis are likely aggregation of histiocytes diverticulitis and fistula formation (they are not present on permanent sections). In specimen B, the 1.5 cm polyp is just benign polypoid mucosa. The two inked rough areas are likely due to diverticulitis. 10/13/2024 11:10 AM CDT [facility] Preliminary Diagnosis Frozen diagnoses: A (10:00 am - 10:16 am). Atypical squamoid epithelial cells, defer for permanent (communicated to Dr. Sahni) B (10:50 am - 11:08 am). Benign (communicated to Dr. Sahni) 10/13/2024 11:10 AM CDT [facility] Pre-Operative Diagnosis COLORESICAL FISTULA 10/13/2024 11:10 AM CDT [facility] Gross Description A. COLORECTAL FISTULA Received [...] one cassette. 10/13/2024 11:10 AM CDT [facility] Tissue FISTULA / Unknown 10/09/2024 9:54 [...] Jones MD PATHOLOGY/CYTOLOGY ORDERABLES Final Result [facility] [address] [facility] [place] [address] * Intubation in OR (10/09/2024 8:56 AM CDT) Narrative Piter Jauregui APRN, CRNA - 10/09/2024 8:56 AM CDT Piter Jauregui APRN, CRNA 10/09/2024 8:56 AM Intubation in OR Staffing Performed: resident/COAL AND ASH SUPERVISOR Resident/COAL AND ASH SUPERVISOR: Piter Jauregui APRN, CRNA Performed by: Piter [...] 10/09/2024 8:22 AM Nerve Block Staffing Performed: resident/COAL AND ASH SUPERVISOR Resident/COAL AND ASH SUPERVISOR: Piter Jauregui APRN, CRNA Performed by: Piter [...] facilitate rehabilitation and/or timely discharge from facility., Reading Injection Technique: Single-shot Needle type: Other Needle [...] stable Injection Pressure normal. Yes Performed by: resident/COAL AND ASH SUPERVISOR , Additional Notes Quadratus Lumborum bilateral us [...] measures to stabilize the patient. Care Teams Records And Information Manager Relationship Specialty Start Date End Date Citlaly Ambrocio APRN, ELECTRICAL ENGINEERING TECHNICIAN [address] [place] [address] PCP - General Primary Care 04/29/24 Yinka [facility]quez [facility] [address] [place] [address] Consulting Physician Urology 04/29/24 Ulysses Sahni MD #2 [facility] [address] [place] [address] Consulting Physician Colon and Rectal Surgery 05/06/24
[2024-12-15 10:26] LABS: Alanine Aminotransferase 14 U/L (6-50); Albumin Level 3.2 g/dL (3.5-5.1); Alkaline Phosphatase 92 U/L (38-126); Anion Gap 6 mmol/L (4-12); Aspartate Amino Transferase 26 U/L (17-59); Bilirubin,Total 0.9 mg/dL (0.2-1.3); Blood Urea Nitrogen 8 mg/dL (9-20); Calcium 8.3 mg/dL (8.4-10.2); Carbon Dioxide 26 mmol/L (22-30); Chloride 106 mmol/L (98-107); Estimated Glomerular Filt Rate > 60; Glucose 112 mg/dL (65-110); Potassium 3.9 mmol/L (3.4-5.0); Sodium 138 mmol/L (137-145); Total Protein 7.0 g/dL (6.3-8.2)
[2024-12-15 10:59] LABS: Thyroid Stimulating Hormone 2.470 uIU/mL (0.465-4.680)
== END 2024-12-15 10:15 | disposition home or self-care (01) ==
PROVIDERS: PCP Family Medicine; Visit Provider Physician Assistant Medical
DX: R91.8 Other nonspecific abnormal finding of lung field (principal); R63.4 Abnormal weight loss; Z72.0 Tobacco use; J43.9 Emphysema, unspecified
CPT/HCPCS: 36415; 71260; 80053; 84443; 85025; Q9967

== ENCOUNTER 2025-02-18 14:52 | Outpatient (CLI) | payer OTHER, SELFPAY ==
--- NOTE | ~2025-02-18 | XR_ITS ---
XR thoracic spine 3V Indication: Dorsalgia, unspecified. PAIN RIGHT MIDDLE BACK NKI Comparison: None Findings: The vertebral heights are intact. No fracture or subluxation. The disc heights are intact. Soft tissues unremarkable Impression: No acute abnormality. Reviewed, dictated and finalized at location A. Impression: No acute abnormality.
--- NOTE | ~2025-02-18 | XR_ITS ---
EXAMINATION: XR shoulder RT min 2V, 02/18/2025 15:00 CDT HISTORY: M25.519 - Pain in unspecified shoulder. NKI COMPARISON: No comparisons available. Findings: Remote fracture of the clavicle, no acute fracture identified No significant degenerative changes. Soft tissues unremarkable. Impression: No acute fracture or malalignment. Reviewed, dictated and finalized at location A. Impression: No acute fracture or malalignment.
--- OUTSIDE RECORDS SUMMARY | 2025-02-18 16:32 | XMS_ITS | Encounter Summary ---
Author Organization [facility] Address [facility] [place] [address] Care Team Providers Care Communications Agent Name Role Phone Shawn Caruso MD Primary Care Provider [phone] Encounter Details Date Type Department Care Team (Late st Contact Info) Description 04/13/2017 [place] [address] , Generic ConversionMD Social History Tobacco Use [...] on filedocumented in this encounter Care Teams Communications Agent Relationship Specialty Start Date End Date Shawn Caruso MD [address] [place] [address] PCP - General 09/23/14 documented as of this encounter
--- OUTSIDE RECORDS SUMMARY | 2025-02-18 16:32 | XMS_ITS | Clinical Summary ---
Author Organization [facility] Address [facility] [place] [address] Care Team Providers Care Carpenters Helper Name Role Phone Shawn Caruso MD Primary Care Provider [phone] Allergies Active Allergy Reactions Criticality Noted Date [...] Active Immunizations Immunization Administration Dates Next Due [employer] COVID-19 AD26 VACCINE 0.5 ML IM SUSP [...] of 2) 02/08/2016 COVID-19 Vaccine (2 - 2024-2 6 season) 2025 11/05/2020 DTaP, Tdap and Td Vaccines ( [...] Diagnosis Comments COLONOSCOPY Routine 04/26/2021 12:42 PM PROCESS DEVELOPMENT ENGINEER from Last 3 Months or Most Recently Relevant to Health Maintenance Insurance [employer] Care Teams Carpenters Helper Relationship Specialty Start Date End Date Shawn Caruso MD [address] [address] PCP - General 09/23/14
--- OUTSIDE RECORDS SUMMARY | 2025-02-18 16:32 | XMS_ITS | Clinical Summary ---
Author Organization [facility] Address [address] [place] [address] Phone Care Team Providers Care Oxyacetylene Welder Name Role Phone Yinka Vazquez MD Unavailable [phone] Citlaly Ambrocio SAWMILL MOULDER OPERATOR, HIM TECH Primary Care Provide r Ulysses Sahni MD [...] Type Department Care Team Description 11/28/2024 Telephone [facility] [address] [place] [address] Yinka Vazquez MD 11/27/2024 11:45 AM CDT Office Visit [facility] [address] [place] [address] Yinka Vazquez MD Flank pain (Primary Dx); Scrotal mass; Benign prostatic hyperplasia without lower urinary tract symptoms Discharge Disposition: Discharged to home or Selfcare 11/25/2024 2:00 PM CDT Office Visit [facility] - General [facility] - [place] [address] [address] Ulysses Sahni MD S/P laparoscopic colectomy (Primary Dx) Discharge Disposition: Discharged to home or Selfcare 11/25/2024 Travel from Last 3 Months Immunizations Immunization Administration Dates Next Due Covid-19 Vaccine, Vector-nr, Rs-ad26, Pf, 0.5 Ml (inSparq/J&J) 11/05/2020 TDAP Vaccine 02/08/2021 Family History Medical [...] Date Smoking Tobacco: Every Day Cigarettes 1 47.7 Started: 1977 Smokeless Tobacco: Never Tobacco Cessation:Ready to Q uit: Not Asked; Counseling Given: Not Answered Alcohol Use Standard Drinks/Week Comments Yes 24 (1 standard drink = 0.6 oz pu re alcohol) Drinks daily after work [facility] Utilities Answer Date Recorded In the past 12 months has th e electric, gas, oil, or water company threatened to shut off services in your home? Patient declined 10/09/2024 Social Connection and Isolation Panel Answer Date Recorded In a typical week, how many times do you talk on the phone with family, friends, or neighbors? Patient declined 10/09/2024 How often do you get togethe r with friends or relatives? Patient declined 10/09/2024 How often do you attend oriental orthodox or voodoo serv ices? Patient declined 10/09/2024 Do you belong to any clubs o r organizations such as oriental orthodox groups, unions, fraternal or athletic groups, or [...] medical care, and heating? Patient declined 10/09/2024 [facility] - Occupational [...] any time in the past 12 m [facility], were you homeless or living in a mcc (including now)? Patient declined 10/09/2024 Sexually Active [...] (1 of 2) 02/08/2016 PSA Discussion 2021 Influenza Immunization (#1) 2025 SARS-COV-2 Immunization (2 - season) 2025 11/05/2020 Td Immunization Every 10 Yea rs (Adults [...] on patient's age to complete this topic Insurance MEDICAID [employer] Advance Directives * Full Code (Latest Code Status on File) Date Activated Date Inactivated Comments 10/10/2024 9:22 AM CPR-Full Treatm ent: FULL ARREST: Attempt Resuscitation/CPR wit intubation and mechanical ventilation. PRE-ARREST: Use entire range of life support measures to stabilize the patient. Care Teams Oxyacetylene Welder Relationship Specialty Start Date End Date Citlaly Ambrocio, SAWMILL MOULDER OPERATOR, HIM TECH [address] [place] [place] [address] PCP - General Primary Care 04/29/24 Yinka Vazquez MD [address] [facility] [address] [place] [address] Consulting Physician Urology 04/29/24 [facility]es [facility] [address] [place] [address] Consulting Physician Colon and Rectal Surgery 05/06/24
== END 2025-02-18 14:53 | disposition home or self-care (01) ==
PROVIDERS: PCP Family Medicine
DX: M54.9 Dorsalgia, unspecified (principal); M25.511 Pain in right shoulder
CPT/HCPCS: 72072; 73030

== ENCOUNTER 2025-05-18 10:17 | Outpatient (CLI) | payer OTHER, SELFPAY ==
--- NOTE | ~2025-05-18 | CT_ITS ---
CT abdomen pelvis w con Clinical History: R10.31 - Right lower quadrant pain . Comparison: None Technique: Axial images lung bases to symphysis pubis IV contrast information not listed in PACS Coronal, sagittal reformats CT images acquired with automatic exposure control for dose reduction DLP: 673 mGy-cm Findings: Lung bases: Clear. Visualized heart and pericardium: Unremarkable. Liver: Cirrhosis. Steatosis. Gallbladder: Unremarkable. Spleen: Enlarged. Pancreas: Unremarkable. Adrenal glands: Unremarkable. Kidneys: Right kidney- No hydronephrosis. No renal stones. Small cyst. Left kidney- No hydronephrosis. No renal stones. Septated cyst with mural calcification. Distal esophagus/stomach: Unremarkable. Small bowel loops: Wall thickening lower abdominal loops. Distal anastomosis. Colon: Distal anastomosis. Normal caliber and wall thickness. Normal RLQ appendix. Nodes: No enlarged nodes. Peritoneum: Interloop ascites, adjacent peritoneal enhancement. No free air. Urinary bladder: Wall thickening. Prostate: Unremarkable. Bones: No acute bony abnormality. Soft tissues: Unremarkable. Aorta: No aneurysm or dissection. IVC: Unremarkable. Main portal vein/SMV/splenic vein: Patent. IMPRESSION: 1. Lower abdominal interloop ascites and/or peritonitis. 2. Associated enteritis. 3. Cystitis. 4. Additional findings as above. Reviewed, dictated and finalized at location R. NAVIGATOR
[2025-05-18 11:01] LABS: Hematocrit 40.8 % (42.0-52.0); Hemoglobin 14.4 g/dL (14.0-18.0); Immature Granulocyte Percent A 0.4 % (0-0.5); Lymphocytes Absolute Auto 1.32 K/mm3 (0.9-3.2); Mean Corpuscular HGB Conc 35.3 g/dl (32-36); Mean Corpuscular Hemoglobin 34.8 pg (26-34); Mean Corpuscular Volume 98.6 fl (80-100); Nucleated Red Blood Cells Absolute Auto 0.000 K/mm3 (0.0-0.012); Nucleated Red Blood Cells Perc 0.0 % (0.0-0.2); Platelet Count Result 155 k/mm3 (150-375); Red Blood Count 4.14 M/mm3 (4.6-6.20); White Blood Count 7.1 K/mm3 (4.5-10.0)
[2025-05-18 12:25] LABS: Alanine Aminotransferase 32 U/L (6-50); Albumin Level 3.8 g/dL (3.5-5.1); Alkaline Phosphatase 98 U/L (38-126); Amylase 53 U/L (30-110); Anion Gap 9 mmol/L (4-12); Aspartate Amino Transferase 52 U/L (17-59); Bilirubin,Total 1.9 mg/dL (0.2-1.3); Blood Urea Nitrogen 11 mg/dL (9-20); Calcium 9.0 mg/dL (8.4-10.2); Carbon Dioxide 27 mmol/L (22-30); Chloride 96 mmol/L (98-107); Estimated Glomerular Filt Rate > 60; Glucose 142 mg/dL (65-110); Lipase 40 U/L (23-300); Potassium 2.9 mmol/L (3.4-5.0); Sodium 132 mmol/L (137-145); Total Protein 7.8 g/dL (6.3-8.2)
== END 2025-05-18 10:18 | disposition home or self-care (01) ==
PROVIDERS: PCP Family Medicine; Visit Provider Nurse Practitioner Family
DX: R18.8 Other ascites (principal); K65.9 Peritonitis, unspecified; K63.89 Other specified diseases of intestine; K52.9 Noninfective gastroenteritis and colitis, unspecified
CPT/HCPCS: 36415; 74177; 80053; 82150; 83690; 85025; Q9967